=== PATIENT | male | born 1960 | race Caucasian/White ===

== ENCOUNTER 2020-12-15 10:48 | Outpatient (CLI) | payer BC, SELFPAY | END 2020-12-15 10:49 | disposition home or self-care (01) | LOC: ANHCOVIDVC 10:48 | DX: Z23 Encounter for immunization (principal) | CPT/HCPCS: 0001A; 91300 ==

== ENCOUNTER 2021-01-05 11:23 | Outpatient (CLI) | payer BC, SELFPAY | END 2021-01-05 11:24 | disposition home or self-care (01) | LOC: ANHCOVIDVC 11:23 | DX: Z23 Encounter for immunization (principal) | CPT/HCPCS: 0002A; 91300 ==